=== PATIENT | female | born 1985 | race Caucasian/White ===

== ENCOUNTER 2016-04-19 13:20 | Emergency (ER) | payer OTHER ==
[~2016-04-19] VITALS: Ht 162.6 cm; Wt 70.3 kg
[~2016-04-19 13:20] MED LIST: [UNRECOGNIZED DRUG - OTHER] PO
[2016-04-19 13:29] VITALS: BP 138/100
--- NOTE | 2016-04-19 14:55 | NUR ---
PATIENT PRESENTS TO ED WITH VOMITING X1 DAY WITH GEN WEAKNESS; DENIES DIARRHEA; SKIN IS PINK/WARM/DRY; AAOX4 WITH EVEN AND STEADY GAIT; LUNGS CLEAR BL; HR EVEN AND REGULAR; PT DENIES ANY FEVER, CP, SOB, OR COUGH AT THIS TIME; PATIENT STATES PAIN OF 8/10 AT THIS TIME; VSS; PATIENT POSITIONED FOR COMFORT; HOB ELEVATED; BEDRAILS UP X2; BED DOWN. ER MD MADE AWARE OF PT STATUS.
--- NOTE | 2016-04-19 16:30 | NUR ---
AAO, COOPERATIVE PT BEING ASSESS BY DR NATARAJAN AT BEDSIDE
[2016-04-19] MEDS ORDERED: NACL 0.9% 1,000 ML IV ONE (16:40)
[2016-04-19] MEDS ORDERED: KETOROLAC 30 MG/ML VIAL IVP ONE (16:40)
[2016-04-19] MEDS ORDERED: ONDANSETRON 4 MG/2 ML VIAL IVP ONE (16:40)
--- NOTE | 2016-04-19 17:15 | NUR ---
AAO, COOPERATIVE PT STILL C/O BACK PAIN 10/19 DR NATARAJAN NOTIFIED, ORDERING MORPHINE
[2016-04-19] MEDS ORDERED: MORPHINE SULFATE 4 MG/ML SYR IVP ONE (17:25)
--- NOTE | 2016-04-19 17:56 | NUR ---
AAO, COOPERATIVE NO C/O PAIN 0/10 OR NAUSEA, DR NATARAJAN NOTIFIED, AWAITING DISCHARGE ORDERS
[2016-04-19 18:15] VITALS: BP 130/70
--- NOTE | 2016-04-19 18:15 | NUR ---
Patient discharged with v/s stable. Written and verbal after care instructions given and explained. Patient alert, oriented and verbalized understanding of instructions. Ambulatory with steady gait. All questions addressed prior to discharge. ID band removed. Patient advised to follow up with PMD. Rx of PREDNISONE, NORCO, CIPRO, ZOFRAN, MOTRIN given. Patient educated on indication of medication including possible reaction and side effects. Opportunity to ask questions provided and answered.
== END 2016-04-19 18:15 | disposition home or self-care (01) ==
LOC: MED 13:20
DX: N39.0 Urinary tract infection, site not specified (principal); J02.9 Acute pharyngitis, unspecified; R05 Cough; Z88.6 Allergy status to analgesic agent
CPT/HCPCS: 81001; 81025; 87086; 96361; 96374; 96375; 99284; J1885; J2270; J2405; J7030

== ENCOUNTER 2016-07-13 20:09 | Emergency (ER) | payer OTHER ==
[~2016-07-13] VITALS: Ht 162.6 cm; Wt 70.3 kg
[2016-07-13 20:12] VITALS: BP 163/97
[2016-07-13 21:00] LABS: BASOPHILS # (AUTO) 0.2 K/uL (0.00-0.22); EOSINOPHILS # (AUTO) 0.3 K/uL (0-0.4); HEMATOCRIT 39.9 % (36-48); HEMOGLOBIN 12.8 g/dL (12.0-16.0); LYMPHOCYTES # (AUTO) 2.4 K/uL (2.5-16.5); LYMPHOCYTES % (AUTO) 21.1 % (20.5-51.1); MEAN CORPUSCULAR HEMOGLOBIN 26 pg (27-31); MEAN CORPUSCULAR HGB CONC 32 g/dL (33-37); MEAN CORPUSCULAR VOLUME 82 fL (80-94); MONOCYTES # (AUTO) 0.5 K/uL (0.8-1.0); MONOCYTES % (AUTO) 4.2 % (1.7-9.3); NEUTROPHILS % (AUTO) 69.7 % (42.2-75.2); PLATELET COUNT (AUTO) 205 K/uL (140-450); RED BLOOD CELL COUNT(AUTO) 4.89 MIL/uL (4.20-5.40); RED CELL DISTRIBUTION WIDTH 13.7 % (11.6-13.7); WHITE BLOOD COUNT (AUTO) 11.4 K/uL (4.8-10.8)
[2016-07-13 21:10] LABS: ANION GAP 11.8 (8-16); CALCIUM 8.9 mg/dL (8.5-10.1); CARBON DIOXIDE 27.8 mmol/L (21-32); CREATININE 0.7 mg/dL (0.6-1.3); POTASSIUM 3.6 mmol/L (3.5-5.1)
[2016-07-13 21:16] LABS: TOTAL BILIRUBIN 0.5 mg/dL (0.0-1.0); TOTAL PROTEIN, SERUM 7.3 g/dL (6.4-8.2)
--- NOTE | 2016-07-13 21:40 | NUR ---
PATIENT LEFT WITHOUT BEING SEEN BY DR. GOLDMAN. NO FURTHER CARE PROVIDED FOR PATIENT.
== END 2016-07-13 21:40 | disposition left against medical advice (07) ==
LOC: MED 20:09
DX: R07.89 Other chest pain (principal); Z53.21 Procedure and treatment not carried out due to patient leaving prior to being seen by health care provider
CPT/HCPCS: 36415; 80053; 83690; 85025; 99281

== ENCOUNTER 2017-02-18 12:16 | Emergency (ER) | payer OTHER ==
[~2017-02-18] VITALS: Ht 162.6 cm; Wt 76.0 kg
[2017-02-18 12:48] VITALS: BP 141/89
--- NOTE | 2017-02-18 13:26 | NUR ---
PATIENT PRESENTS TO ED WITH LOWER BACK PAIN . PT STATES . DENIES N/V/D; SKIN IS PINK/WARM/DRY; AAOX4 WITH EVEN AND STEADY GAIT; LUNGS CLEAR BL; HR EVEN AND REGULAR; PT DENIES ANY FEVER, CP, SOB, OR COUGH AT THIS TIME; PATIENT STATES PAIN OF 10/10 AT THIS TIME; VSS; PATIENT POSITIONED FOR COMFORT; HOB ELEVATED; BEDRAILS UP X2; BED DOWN. ER MD MADE AWARE OF PT STATUS.
[2017-02-18] MEDS ORDERED: diphenhydrAMINE 50 MG/ML VIAL IM ONE (13:35)
[2017-02-18] MEDS ORDERED: HYDROmorphone PFS 2 MG/ML SYR IM ONE (13:35)
[2017-02-18] MEDS ORDERED: KETOROLAC 60 MG/2 ML VIAL IM ONE (13:35)
--- NOTE | 2017-02-18 13:59 | NUR ---
PRIOR TO BEING MEDICATED WRITTEN PT AMBULATED TO RESTROOM WITH SLOW STEADY GAIT.
--- NOTE | 2017-02-18 14:00 | NUR ---
WILL CONTINUE TO OBSERVE FOR PAIN CONTROL--- AT BEDSIDE
--- NOTE | 2017-02-18 14:00 | NUR ---
LAB COLLECTED TO URINE SAMPLE PROVIDED BY PT
[2017-02-18 14:08] LABS: APPEARANCE,URINE CLEAR (CLEAR); BILIRUBIN,URINE NEGATIVE (NEGATIVE); BLOOD, URINE TRACE-I (NEGATIVE); COLOR,URINE YELLOW (YELLOW); LEUKOCYTE ESTERASE ,URINE NEGATIVE (NEGATIVE); NITRITE, URINE NEGATIVE (NEGATIVE); UGLUCOSE NEGATIVE (NEGATIVE)
[2017-02-18 14:13] LABS: BARBITURATE, URINE NEG. ng/ml (NEG <=200); BENZODIAZEPINE, URINE NEG. ng/mL (NEG <=200); CANNABINOID, URINE NEG. ng/mL (NEG <=50); COCAINE, URINE NEG. ng/mL (NEG <=300); OPIATE, URINE NEG. ng/mL (NEG <=2000); PHENCYCLIDINE SCREEN,URINE NEG. ng/mL (NEG <=25)
[2017-02-18 14:24] LABS: RBC,URINE 0-5 (RARE) /HPF (0-5); WBC,URINE 0-5 (RARE) /HPF (0-5)
[2017-02-18 14:36] VITALS: BP 131/71
--- NOTE | 2017-02-18 14:37 | NUR ---
PT ADMITS PAIN HAS DECREASED TO BELOW TOLERABLE LEVEL INSTRUCTED TO F/U WITH PMD THIS WEEK Patient discharged with v/s stable. Written and verbal after care instructions given and explained. Patient alert, oriented and verbalized understanding of instructions. Ambulatory with steady gait. All questions addressed prior to discharge. ID band removed. Patient advised to follow up with PMD. Rx ofVISTARIL/VOLTAREN XR given. Patient educated on indication of medication including possible reaction and side effects. Opportunity to ask questions provided and answered.
== END 2017-02-18 14:37 | disposition home or self-care (01) ==
LOC: MED 12:16
DX: G89.29 Other chronic pain (principal); M54.5 Low back pain; Z79.899 Other long term (current) drug therapy
CPT/HCPCS: 80305; 81001; 81025; 96372; 99284; J1170; J1200; J1885

== ENCOUNTER 2017-06-05 00:05 | Emergency (ER) | payer OTHER ==
[~2017-06-05] VITALS: Ht 162.6 cm; Wt 76.7 kg
[2017-06-05 00:17] VITALS: BP 135/100
--- NOTE | 2017-06-05 00:50 | NUR ---
EKG AND LABS DONE
--- NOTE | 2017-06-05 00:54 | NUR ---
PT AMBULATED TO CHAIR C
--- NOTE | 2017-06-05 00:59 | NUR ---
PATIENT PRESENTS TO ED WITH C/O ABD PAIN THAT RADIATES TO THE BACK AND CHEST PAIN PT DENIES N/V/D; SKIN IS PINK/WARM/DRY; AAOX4 WITH EVEN AND STEADY GAIT; LUNGS CLEAR BL; HR EVEN AND REGULAR; PT DENIES ANY FEVER, CP, SOB, OR COUGH AT THIS TIME; PATIENT STATES PAIN OF 10/10 AT THIS TIME; VSS; PATIENT POSITIONED FOR COMFORT; HOB ELEVATED; BEDRAILS UP X2; BED DOWN. ER MD MADE AWARE OF PT STATUS.
[2017-06-05 01:07] LABS: HEMATOCRIT 41.1 % (36-48); HEMOGLOBIN 13.5 g/dL (12.0-16.0); MEAN CORPUSCULAR HEMOGLOBIN 28 pg (27-31); MEAN CORPUSCULAR HGB CONC 33 g/dL (33-37); MEAN CORPUSCULAR VOLUME 86.1 fL (80-94); PLATELET COUNT (AUTO) 183 K/uL (140-450); RED BLOOD CELL COUNT(AUTO) 4.77 MIL/uL (4.20-5.40); RED CELL DISTRIBUTION WIDTH 12.7 % (11.6-13.7); WHITE BLOOD COUNT (AUTO) 7.9 K/uL (4.8-10.8)
--- NOTE | 2017-06-05 01:18 | NUR ---
PT TAKEN TO BED 11
[2017-06-05] MEDS ORDERED: NACL 0.9% 1,000 ML IV ONE (01:40)
[2017-06-05] MEDS ORDERED: MORPHINE SULFATE 4 MG/ML SYR IVP ONE ×2 (01:40→03:50)
[2017-06-05] MEDS ORDERED: PANTOPRAZOLE 40 MG INJ VIAL IVP ONE (01:40)
[2017-06-05 01:50] LABS: APPEARANCE,URINE CLEAR (CLEAR); BILIRUBIN,URINE NEGATIVE (NEGATIVE); BLOOD, URINE 1+ (NEGATIVE); COLOR,URINE YELLOW (YELLOW); LEUKOCYTE ESTERASE ,URINE NEGATIVE (NEGATIVE); NITRITE, URINE NEGATIVE (NEGATIVE); UGLUCOSE NEGATIVE (NEGATIVE)
[2017-06-05 04:18] LABS: RBC,URINE 3-10 (FEW) /HPF (0-5); WBC,URINE 0-5 (RARE) /HPF (0-5)
[2017-06-05 06:27] LABS: ANION GAP 10.2 (8-16); CARBON DIOXIDE 26.7 mmol/L (21-32); CREATININE 0.7 mg/dL (0.6-1.3); POTASSIUM 3.9 mmol/L (3.5-5.1); TOTAL BILIRUBIN 0.7 mg/dL (0.0-1.0)
[2017-06-05 06:28] LABS: ALBUMIN 3.6 g/dL (3.4-5.0)
[2017-06-05] MEDS ORDERED: ALUMINUM HYD/MAG/SIMETHICONE 30 ML UDC PO ONE (06:40)
[2017-06-05] MEDS ORDERED: DICYCLOMINE HCL LIQUID 10 MG/5 ML UDC PO ONE (06:40)
[2017-06-05] MEDS ORDERED: LIDOCAINE VISCOUS 2% 20 ML UDC PO ONE (06:40)
--- NOTE | 2017-06-05 06:47 | NUR ---
IV removed, catheter intact and site benign. Applied folded 4x4 gauze and tape to stop bleeding.
[2017-06-05 07:04] VITALS: BP 162/97
--- NOTE | 2017-06-05 07:04 | NUR ---
Patient discharged with v/s stable. Written and verbal after care instructions given and explained. Patient alert, oriented and verbalized understanding of instructions. Ambulatory with steady gait. All questions addressed prior to discharge. ID band removed. Patient advised to follow up with PMD. Rx of ZANTAC 300MG AND NORCO 5/325MG given. Patient educated on indication of medication including possible reaction and side effects. Opportunity to ask questions provided and answered.
== END 2017-06-05 07:04 | disposition home or self-care (01) ==
LOC: MED 00:05
DX: K29.70 Gastritis, unspecified, without bleeding (principal); Z90.49 Acquired absence of other specified parts of digestive tract; Z88.6 Allergy status to analgesic agent
CPT/HCPCS: 36415; 80053; 81001; 82150; 83605; 83690; 84484; 84703; 85025; 85379; 87040; 93005; 96361; 96374; 96375; 96376; 99285; C9113; J2270; J7030

== ENCOUNTER 2017-11-18 21:35 | Emergency (ER) | payer OTHER ==
[~2017-11-18] VITALS: Ht 162.6 cm; Wt 77.8 kg
[2017-11-18 21:48] VITALS: BP 125/78
--- NOTE | 2017-11-18 21:52 | NUR ---
TO BED # 10 AMB REPORT GIVEN TO ZAIRA BYRD
--- NOTE | 2017-11-18 22:10 | NUR ---
32/F BIB FAMILY, C/O 12/19 PELVIC PAIN, RADIATING TO SIDES, X4 HRS. S/P VAGINAL HYSTERECTOMY 2 DAYS AGO. PT STATED THAT SHE HAS A SLING IN THE BLADDER, WENT HOME WITH PANTOJA CATHETER WITH CAP. PT NOTICED HEMATURIA AFTER URINATION, THINKS THE CATHETER IS PULLED. PT REPORTS URINE COMING OUT THROUGH URETHRA AND CATHETER WHEN URINATING. 4 LAPAROSCOPIC INCISIONS NOTED, DRESSING IN PLACE, DENIES PAIN ON INCISION SITES.
--- NOTE | 2017-11-18 23:51 | NUR ---
Dr. Lin evaluating patient at bedside.
[2017-11-19] MEDS ORDERED: NACL 0.9% 1,000 ML IV SCH (00:07)
[2017-11-19] MEDS ORDERED: ONDANSETRON 4 MG/2 ML VIAL IVP ONE (00:10)
[2017-11-19] MEDS ORDERED: MORPHINE SULFATE 10 MG/ML SYR IVP ONE (00:10)
--- NOTE | 2017-11-19 00:20 | NUR ---
PT RESTING IN BED, REPORTS 10/10 PAIN, VSS, ALL NEEDS MET.
[2017-11-19] MEDS ORDERED: MORPHINE SULFATE 4 MG/ML SYR ONE (00:24)
[2017-11-19] MEDS ORDERED: MORPHINE SULFATE 2 MG/ML SYR ONE (00:25)
--- NOTE | 2017-11-19 00:27 | NUR ---
PT TAKEN TO RADIOLOGY
[2017-11-19 01:19] LABS: BASOPHILS # (AUTO) 0.1 K/uL (0.00-0.22); BASOPHILS % (AUTO) 0.7 % (0.0-2.0); EOSINOPHILS # (AUTO) 0.5 K/uL (0-0.4); HEMATOCRIT 28.9 % (36-48); HEMOGLOBIN 9.4 g/dL (12.0-16.0); LYMPHOCYTES # (AUTO) 3.2 K/uL (2.5-16.5); LYMPHOCYTES % (AUTO) 32.8 % (20.5-51.1); MEAN CORPUSCULAR HEMOGLOBIN 25 pg (27-31); MEAN CORPUSCULAR HGB CONC 33 g/dL (33-37); MEAN CORPUSCULAR VOLUME 77.5 fL (80-94); MONOCYTES # (AUTO) 0.5 K/uL (0.8-1.0); NEUTROPHILS # (AUTO) 5.5 K/uL (1.8-7.7); NEUTROPHILS % (AUTO) 56.5 % (42.2-75.2); PLATELET COUNT (AUTO) 225 K/uL (140-450); RED BLOOD CELL COUNT(AUTO) 3.73 MIL/uL (4.20-5.40); RED CELL DISTRIBUTION WIDTH 18.1 % (11.6-13.7); WHITE BLOOD COUNT (AUTO) 9.7 K/uL (4.8-10.8)
[2017-11-19 01:26] LABS: APPEARANCE,URINE SL CLOUDY (CLEAR); BILIRUBIN,URINE NEGATIVE (NEGATIVE); BLOOD, URINE 3+ (NEGATIVE); COLOR,URINE YELLOW (YELLOW); LEUKOCYTE ESTERASE ,URINE NEGATIVE (NEGATIVE); NITRITE, URINE NEGATIVE (NEGATIVE); UGLUCOSE NEGATIVE (NEGATIVE)
[2017-11-19 01:26] LABS: ANION GAP 8.2 (8-16); CARBON DIOXIDE 29.6 mmol/L (21-32); CREATININE 0.4 mg/dL (0.6-1.3); POTASSIUM 3.8 mmol/L (3.5-5.1)
[2017-11-19 01:32] LABS: ALBUMIN 3.4 g/dL (3.4-5.0); TOTAL BILIRUBIN 0.3 mg/dL (0.0-1.0)
[2017-11-19 01:50] LABS: RBC,URINE 11-20 (MOD) /HPF (0-5); WBC,URINE 0-5 (RARE) /HPF (0-5)
--- NOTE | 2017-11-19 02:10 | NUR ---
ER AT BEDSIDE
[2017-11-19] MEDS ORDERED: fentaNYL 0.05 MG/ML VIAL IVP ONE (03:20)
--- NOTE | 2017-11-19 04:05 | NUR ---
Patient discharged with v/s stable. Written and verbal after care instructions given and explained. Patient alert, oriented and verbalized understanding of instructions. Wheel Chair Assisted with to car. All questions addressed prior to discharge. ID band removed. Patient advised to follow up with PMD. Rx of NORCO REGLAN given. Patient educated on indication of medication including possible reaction and side effects. Opportunity to ask questions provided and answered.
[2017-11-19 04:06] VITALS: BP 111/72
== END 2017-11-19 04:05 | disposition home or self-care (01) ==
LOC: MED 21:35
DX: G89.18 Other acute postprocedural pain (principal); Z88.6 Allergy status to analgesic agent; Z90.710 Acquired absence of both cervix and uterus
CPT/HCPCS: 36415; 71045; 74176; 80053; 81001; 81025; 83690; 85025; 87040; 87086; 93005; 96361; 96374; 96375; 99285; J2270; J2405; J3010; J7030

== ENCOUNTER 2018-05-07 13:26 | Emergency (ER) | payer OTHER ==
[~2018-05-07] VITALS: Ht 162.6 cm; Wt 68.0 kg
[2018-05-07 13:30] VITALS: BP 153/95
--- NOTE | 2018-05-07 13:35 | NUR ---
PT TRIAGED, GIVEN URINE CUP AND SENT TO ER LOBBY. VSS.
--- NOTE | 2018-05-07 13:53 | NUR ---
PT TO ER BED 12
--- NOTE | 2018-05-07 14:02 | NUR ---
PATIENT PRESENTS TO ED WITH C/O FRONTAL LOBE PRESSURE/ SINUS RADIATING TO OCCIPITAL REGION X LAST NIGHT PT ADDS SHE HAS TAKEN TYLENOL AND IBUPROFEN WITH NO RELIEF. DENIES CURRENTLY WITH COLD SYMPTOMS. FULL CLEAR SPEECH, NO FACIAL ASYMMETRY, MOVING EXTREMITIES EQUALLY, NO DRIFT NOTED. DENIES N/V/D; SKIN IS PINK/WARM/DRY; AAOX4 WITH EVEN AND STEADY GAIT; LUNGS CLEAR BL; HR EVEN AND REGULAR; PT DENIES ANY FEVER, CP, SOB, OR COUGH AT THIS TIME; PATIENT STATES PAIN OF 10/10 AT THIS TIME; VSS; PATIENT POSITIONED FOR COMFORT; HOB ELEVATED; BEDRAILS UP X2; BED DOWN. ER MD MADE AWARE OF PT STATUS.
[2018-05-07] MEDS ORDERED: KETOROLAC 60 MG/2 ML VIAL IM ONE (14:25)
[2018-05-07] MEDS ORDERED: PROCHLORPERAZINE 10 MG/2 ML VIAL IM ONE (14:25)
--- NOTE | 2018-05-07 15:19 | NUR ---
MEDICATED WRITTEN, LIGHTS TURNED OFF FOR COMFORT----WILL CONTINUE TO OBSERVE FOR PAIN CONTROL---
--- NOTE | 2018-05-07 16:21 | NUR ---
CONTINUES TO C/O POUNDING HEADACHE---MD NOTIFIED
[2018-05-07] MEDS ORDERED: LIDOCAINE 1% 500 MG/50 ML VIAL INJ SCH (16:30)
--- NOTE | 2018-05-07 16:45 | NUR ---
LIDOCAINE AND OTHER SUPPLIES AT BEDSIDE FOR MD --DIRECT BLOCK
[2018-05-07] MEDS ORDERED: LIDOCAINE MPF 1% 5mL VIAL ONE (16:52)
--- NOTE | 2018-05-07 17:55 | NUR ---
Patient discharged with v/s stable. Written and verbal after care instructions given and explained. Patient verbalized understanding. Ambulatory with steady gait. All questions addressed prior to discharge. Advised to follow up with PMD.
[2018-05-07 17:56] VITALS: BP 127/71
== END 2018-05-07 17:55 | disposition home or self-care (01) ==
LOC: MED 13:26
DX: G44.209 Tension-type headache, unspecified, not intractable (principal); R03.0 Elevated blood-pressure reading, without diagnosis of hypertension; R11.2 Nausea with vomiting, unspecified; Z88.5 Allergy status to narcotic agent; Z90.710 Acquired absence of both cervix and uterus
CPT/HCPCS: 20552; 96372; 99283; J0780; J1885; J2001

== ENCOUNTER 2018-05-25 15:24 | Emergency (ER) | payer OTHER ==
[~2018-05-25] VITALS: Ht 162.6 cm; Wt 70.3 kg
[2018-05-25 15:45] VITALS: BP 153/96
--- NOTE | 2018-05-25 16:10 | NUR ---
BIB SELF WITH C/O LOWER BACK PAIN 9/10, SHARP AND ACHEY & CONSTIPATION X3 DAYS. STATES SHE HAS A HEMMORHOID THAT SHE HAS BEEN USING OTC CREAM FOR. PT ALSO STATES SHE HAS BEEN FEELING A BURNING FEELING UPON URINATION WELL R SIDED LOWER ABDOMEN TENDERNESS.
[2018-05-25] MEDS ORDERED: KETOROLAC 60 MG/2 ML VIAL IM ONE (16:15)
--- NOTE | 2018-05-25 16:38 | NUR ---
bedside x-ray completed
[2018-05-25 17:02] VITALS: BP 140/86
--- NOTE | 2018-05-25 17:03 | NUR ---
Patient discharged with v/s stable. Written and verbal after care instructions given and explained. Patient alert, oriented and verbalized understanding of instructions. Ambulatory with steady gait. All questions addressed prior to discharge. ID band removed. Patient advised to follow up with PMD. Rx of LACTULOSE, MINERAL OIL, MORTIN, ANUCORT SUPPOSETORY given. Patient educated on indication of medication including possible reaction and side effects. Opportunity to ask questions provided and answered. Addendum: 05/25/18 at 1705 by [email or web address] Patient discharged with v/s stable. Written and verbal after care instructions given and explained. Patient alert, oriented and verbalized understanding of instructions. Ambulatory with steady gait. All questions addressed prior to discharge. ID band removed. Patient advised to follow up with PMD. Rx of LACTULOSE, MINERAL OIL, MORTIN, ANUCORT SUPPOSITORY given. TRAMADOL INITIALLY PRESCRIBED, DUE TO ALLERGY, IT WAS REMOVED FROM PRESCRIPTION. Patient educated on indication of medication including possible reaction and side effects. Opportunity to ask questions provided and answered.
== END 2018-05-25 17:03 | disposition home or self-care (01) ==
LOC: MED 15:24
DX: K64.4 Residual hemorrhoidal skin tags (principal); K59.00 Constipation, unspecified; Z88.5 Allergy status to narcotic agent
CPT/HCPCS: 74018; 81002; 81025; 96372; 99283; J1885

== ENCOUNTER 2019-01-07 22:06 | Emergency (ER) | payer OTHER ==
[~2019-01-07] VITALS: Ht 162.6 cm; Wt 74.8 kg
[2019-01-07 22:20] VITALS: BP 153/95
[2019-01-07] MEDS ORDERED: LISINOPRIL 20 MG TAB PO ONE (23:25)
[2019-01-07] MEDS ORDERED: ACETAMINOPHEN EXTRA STRENGTH 500 MG TAB PO ONE (23:25)
[2019-01-07] MEDS ORDERED: LISINOPRIL 10 MG TAB ONE (23:34)
[2019-01-08] MEDS ORDERED: ONDANSETRON 4 MG ODT PO ONE (00:40)
[2019-01-08] MEDS ORDERED: MORPHINE SULFATE 4 MG/ML SYR IM ONE (00:40)
[2019-01-08 01:39] VITALS: BP 127/93
== END 2019-01-08 00:39 | disposition home or self-care (01) ==
LOC: MED 22:06
DX: I10 Essential (primary) hypertension (principal); R42 Dizziness and giddiness; R11.2 Nausea with vomiting, unspecified; Z90.49 Acquired absence of other specified parts of digestive tract; Z90.710 Acquired absence of both cervix and uterus; Z88.6 Allergy status to analgesic agent
CPT/HCPCS: 81025; 96372; 99283; J2270; Q0162; 93005

== ENCOUNTER 2019-02-14 18:04 | Emergency (ER) | payer OTHER | END 2019-02-14 19:58 | disposition left against medical advice (07) | LOC: MED 18:04 | DX: R51 Headache (principal); Z53.21 Procedure and treatment not carried out due to patient leaving prior to being seen by health care provider ==

== ENCOUNTER 2019-03-26 09:50 | Emergency (ER) | payer OTHER ==
[~2019-03-26] VITALS: Ht 152.4 cm; Wt 74.8 kg
[2019-03-26 09:58] VITALS: BP 140/95
[2019-03-26] MEDS: KETOROLAC 30 MG/ML VIAL IM ONE (11:13)
[2019-03-26] MEDS: PROCHLORPERAZINE 10 MG/2 ML VIAL IM ONE (11:14)
[2019-03-26 11:30] VITALS: BP 133/89
== END 2019-03-26 11:30 | disposition home or self-care (01) ==
LOC: MED 09:50
DX: R51 Headache (principal); M54.5 Low back pain; R11.10 Vomiting, unspecified; Z90.710 Acquired absence of both cervix and uterus; Z88.5 Allergy status to narcotic agent
CPT/HCPCS: 81002; 81025; 96372; 99283; J0780; J1885

== ENCOUNTER 2021-06-10 08:06 | Emergency (ER) | payer OTHER ==
[~2021-06-10] VITALS: Ht 160 cm; Wt 75.7 kg
[2021-06-10 08:13] VITALS: BP 148/97
--- NOTE | 2021-06-10 08:20 | NUR ---
PATIENT AMBULATED TO BED 3, STEADY GAIT
[2021-06-10] MEDS ORDERED: diphenhydrAMINE 50 MG/ML VIAL IVP ONE (08:40)
[2021-06-10] MEDS ORDERED: METOCLOPRAMIDE 10 MG/2 ML INJ VIAL IVP ONE ×2 (08:40→09:05)
[2021-06-10] MEDS ORDERED: NACL 0.9% 1,000 ML IV ONE (08:40)
--- NOTE | 2021-06-10 08:45 | NUR ---
DOCTOR NATARAJAN AT BEDSIDE
[2021-06-10] MEDS ORDERED: IBUP-2213 PO ×2 (08:54→08:56)
[2021-06-10] MEDS ORDERED: ONDA8TAB87 PO ×2 (08:54→08:56)
[2021-06-10] MEDS ORDERED: ACET-8386 PO ×2 (08:54→08:56)
--- NOTE | 2021-06-10 10:05 | NUR ---
Patient discharged with v/s stable. Written and verbal after care instructions given and explained. Patient alert, oriented and verbalized understanding of instructions. Ambulatory with steady gait. All questions addressed prior to discharge. ID band removed. IV DISCONTINUED AND REMOVED, GAUZE DRESSING APPLIED. Patient advised to follow up with PMD. Rx of IBUPROFEN, ZOFRAN, HYDROCODONE/ACETAMINOOPHEN given. Patient educated on indication of medication including possible reaction and side effects. Opportunity to ask questions provided and answered.
[2021-06-10 10:07] VITALS: BP 148/97
== END 2021-06-10 10:05 | disposition home or self-care (01) ==
LOC: MED 08:06
DX: R51.9 Headache, unspecified (principal); R11.2 Nausea with vomiting, unspecified; Z88.5 Allergy status to narcotic agent; Z90.710 Acquired absence of both cervix and uterus
CPT/HCPCS: 81002; 96361; 96374; 96375; 99284; J1200; J2765; J7030; 81025

== ENCOUNTER 2021-11-05 03:06 | Emergency (ER) | payer OTHER ==
[~2021-11-05 03:06] MED LIST changes: +ACET-8386 PO; +IBUP-2213 PO; +ONDA8TAB87 PO; -[UNRECOGNIZED DRUG - OTHER] PO
--- NOTE | 2021-11-05 03:23 | NUR ---
PATIENT LEFT WITHOUT BEING SEEN BY DR. LÓPEZ. NO FURTHER CARE PROVIDED FOR PATIENT.
== END 2021-11-05 03:23 | disposition left against medical advice (07) ==
LOC: MED 03:06
DX: R10.9 Unspecified abdominal pain (principal); Z53.21 Procedure and treatment not carried out due to patient leaving prior to being seen by health care provider

== ENCOUNTER 2021-12-14 18:03 | Emergency (ER) | payer OTHER ==
[~2021-12-14] VITALS: Ht 162.6 cm; Wt 75.7 kg
[2021-12-14 18:18] VITALS: BP 171/110
--- NOTE | 2021-12-14 18:40 | NUR ---
36 y/o female bib self, c/o cough, body aches, subjective fever, vomiting and diarrhea for 2 days. skin is pink/warm/dry. a&o x4 with even and steady gait. pt denies dysuria, hematuria, urinary frequency or retention, or anyone sick in the household with the same symptoms. pt states pain is 8/10 at this time. patient positioned for comfort. hob elevated. bed down. ermd made aware of pt. pmh: denies allergy: tramadol med: nyquil
[2021-12-14] MEDS ORDERED: IPRATROPIUM 0.02% 0.5 MG/2.5 ML NEBU INH ONE (18:55)
[2021-12-14] MEDS ORDERED: DEXAMETHASONE 10 MG/ML VIAL IM ONE (18:55)
[2021-12-14] MEDS ORDERED: ALBUTEROL 0.083% 2.5 MG/3 ML NEBU INH ONE ×2 (18:55→20:05)
--- NOTE | 2021-12-14 19:23 | NUR ---
RT AT BEDSIDE.
--- NOTE | 2021-12-14 20:00 | NUR ---
SWAB COLLECTED AND TAKEN TO LAB.
--- NOTE | 2021-12-14 20:00 | NUR ---
Dr. Costello examining patient.
--- NOTE | 2021-12-14 20:13 | NUR ---
RT AT BEDSIDE.
[2021-12-14] MEDS ORDERED: NACL 0.9% 1,000 ML IV ONE (20:25)
[2021-12-14] MEDS ORDERED: MAG SULF 2000 MG/WATER PREMIX 50 ML IV ONE (20:25)
--- NOTE | 2021-12-14 20:28 | NUR ---
LAB AT BEDSIDE.
[2021-12-14 20:38] LABS: BASOPHILS % (AUTO) 0.4 % (0.0-2.0); EOSINOPHILS # (AUTO) 0.1 K/uL (0-0.4); EOSINOPHILS % (AUTO) 2.4 % (0.0-4.0); HEMATOCRIT 41.3 % (36-48); HEMOGLOBIN 14.1 g/dL (12.0-16.0); LYMPHOCYTES # (AUTO) 1.2 K/uL (2.5-16.5); LYMPHOCYTES % (AUTO) 23.9 % (20.5-51.1); MEAN CORPUSCULAR HEMOGLOBIN 30 pg (27-31); MEAN CORPUSCULAR HGB CONC 34 g/dL (33-37); MEAN CORPUSCULAR VOLUME 86.2 fL (80-94); MONOCYTES # (AUTO) 0.2 K/uL (0.8-1.0); MONOCYTES % (AUTO) 3.4 % (1.7-9.3); NEUTROPHILS # (AUTO) 3.5 K/uL (1.8-7.7); NEUTROPHILS % (AUTO) 69.9 % (42.2-75.2); PLATELET COUNT (AUTO) 173 K/uL (140-450); RED BLOOD CELL COUNT(AUTO) 4.79 MIL/uL (4.20-5.40); RED CELL DISTRIBUTION WIDTH 13.7 % (11.6-13.7)
[2021-12-14 21:04] LABS: ALBUMIN 3.4 g/dL (3.4-5.0); ANION GAP 15.9 (8-16); CARBON DIOXIDE 22.9 mmol/L (21-32); CREATININE 0.6 mg/dL (0.6-1.3); TOTAL BILIRUBIN 0.3 mg/dL (0.0-1.0)
[2021-12-14 21:17] LABS: POTASSIUM 2.8 mmol/L (3.5-5.1)
--- NOTE | 2021-12-14 21:20 | NUR ---
PATIETN AMBULATED TO RR
--- NOTE | 2021-12-14 21:31 | NUR ---
RAD AT BEDSIDE.
[2021-12-14] MEDS ORDERED: DOXY-690 PO (21:54)
[2021-12-14] MEDS ORDERED: ALBU0.0912 INH (21:54)
[2021-12-14] MEDS ORDERED: POTASSIUM CHLORIDE 10 MEQ TABER PO ONE ×2 (21:55)
[2021-12-14 22:28] VITALS: BP 154/89
--- NOTE | 2021-12-14 22:28 | NUR ---
Patient discharged with v/s stable. Written and verbal after care instructions given and explained. Patient alert, oriented and verbalized understanding of instructions. Ambulatory with steady gait. All questions addressed prior to discharge. ID band removed. Patient advised to follow up with PMD. Rx of albuterol and vibramycin given.
== END 2021-12-14 22:28 | disposition home or self-care (01) ==
LOC: MED 18:05
DX: J45.909 Unspecified asthma, uncomplicated (principal); E87.6 Hypokalemia; Z20.822 Contact with and (suspected) exposure to COVID-19
CPT/HCPCS: 36415; 71045; 80053; 85025; 87635; 94640; 96365; 96372; 99291; C9803; J1100; J3475; J7030; J7613; Q0092

== ENCOUNTER 2023-06-04 17:49 | Emergency (ER) | payer OTHER ==
[~2023-06-04] VITALS: Ht 162.6 cm; Wt 80.3 kg
[~2023-06-04 17:49] MED LIST changes: -ACET-8386 PO; +ACET-8905 PO; +ALBU0.0912 INH; +DOXY-690 PO
[2023-06-04 18:02] VITALS: BP 162/118; PULSE 82; RESP 20; TEMP 98.7; O2SAT 97
[2023-06-04 19:26] LABS: BASOPHILS % (AUTO) 0.4 % (0.0-2.0); EOSINOPHILS # (AUTO) 0.3 K/uL (0-0.4); EOSINOPHILS % (AUTO) 3.2 % (0.0-4.0); HEMATOCRIT 38.4 % (36-48); HEMOGLOBIN 13.3 g/dL (12.0-16.0); LYMPHOCYTES # (AUTO) 2.5 K/uL (2.5-16.5); MEAN CORPUSCULAR HEMOGLOBIN 30 pg (27-31); MEAN CORPUSCULAR HGB CONC 35 g/dL (33-37); MEAN CORPUSCULAR VOLUME 86.1 fL (80-94); MONOCYTES # (AUTO) 0.5 K/uL (0.8-1.0); MONOCYTES % (AUTO) 5.9 % (1.7-9.3); NEUTROPHILS # (AUTO) 5.1 K/uL (1.8-7.7); NEUTROPHILS % (AUTO) 60.5 % (42.2-75.2); PLATELET COUNT (AUTO) 225 K/uL (140-450); RED BLOOD CELL COUNT(AUTO) 4.46 MIL/uL (4.20-5.40); RED CELL DISTRIBUTION WIDTH 13.6 % (11.6-13.7); WHITE BLOOD COUNT (AUTO) 8.4 K/uL (4.8-10.8)
[2023-06-04] MEDS: NACL 0.9% 1,000 ML IV ONE (19:26)
[2023-06-04] MEDS: KETOROLAC 30 MG/ML VIAL IVP ONE (19:29)
[2023-06-04] MEDS: diphenhydrAMINE 50 MG/ML VIAL IVP ONE (19:30)
[2023-06-04] MEDS: DEXAMETHASONE 10 MG/ML VIAL IVP ONE (19:34)
[2023-06-04] MEDS: PROCHLORPERAZINE 10 MG/2 ML VIAL IVP ONE (19:34)
[2023-06-04 19:40] LABS: ANION GAP 10.7 (8-16); CARBON DIOXIDE 27.6 mmol/L (21-32); CREATININE 0.5 mg/dL (0.6-1.3); POTASSIUM 3.3 mmol/L (3.5-5.1)
[2023-06-04] MEDS ORDERED: NAPR-54 PO (20:47)
[2023-06-04] MEDS ORDERED: METO-486 PO (20:47)
[2023-06-04 21:02] VITALS: BP 134/83; PULSE 69; RESP 15; TEMP 98.6; O2SAT 97
== END 2023-06-04 21:02 | disposition home or self-care (01) ==
LOC: MED 17:49
DX: G43.909 Migraine, unspecified, not intractable, without status migrainosus (principal); I10 Essential (primary) hypertension; R10.9 Unspecified abdominal pain; Z90.710 Acquired absence of both cervix and uterus; Z88.8 Allergy status to other drugs, medicaments and biological substances; Z79.1 Long term (current) use of non-steroidal anti-inflammatories (NSAID); Z79.899 Other long term (current) drug therapy
CPT/HCPCS: 36415; 80048; 81002; 81025; 84484; 85025; 93005; 96361; 96374; 96375; 99284; J0780; J1100; J1200; J1885; J7030

== ENCOUNTER 2023-10-21 22:39 | Emergency (ER) | payer OTHER ==
[~2023-10-21] VITALS: Ht 160 cm; Wt 78.9 kg
[~2023-10-21 22:39] MED LIST changes: +METO-486 PO; +NAPR-337 PO
[2023-10-21 22:44] VITALS: BP 146/92; PULSE 75; RESP 18; TEMP 98.2; O2SAT 98
[2023-10-21 23:24] LABS: APPEARANCE,URINE CLEAR (CLEAR); BILIRUBIN,URINE NEGATIVE (NEGATIVE); BLOOD, URINE TRACE-I (NEGATIVE); COLOR,URINE YELLOW (YELLOW); LEUKOCYTE ESTERASE ,URINE NEGATIVE (NEGATIVE); NITRITE, URINE NEGATIVE (NEGATIVE); PH,URINE 6.5 (5.0-9.0); PROTEIN,URINE NEGATIVE (NEGATIVE); UGLUCOSE NEGATIVE (NEGATIVE); UROBILINOGEN,URINE 0.2 EU/dL (0.2 - 1)
[2023-10-21 23:25] LABS: BASOPHILS # (AUTO) 0.1 K/uL (0.00-0.22); BASOPHILS % (AUTO) 0.6 % (0.0-2.0); EOSINOPHILS # (AUTO) 1.1 K/uL (0-0.4); EOSINOPHILS % (AUTO) 9.5 % (0.0-4.0); HEMATOCRIT 37.5 % (36-48); HEMOGLOBIN 12.4 g/dL (12.0-16.0); LYMPHOCYTES % (AUTO) 26.2 % (20.5-51.1); MEAN CORPUSCULAR HEMOGLOBIN 28 pg (27-31); MEAN CORPUSCULAR HGB CONC 33 g/dL (33-37); MEAN CORPUSCULAR VOLUME 85.5 fL (80-94); MONOCYTES # (AUTO) 0.5 K/uL (0.8-1.0); MONOCYTES % (AUTO) 4.8 % (1.7-9.3); NEUTROPHILS # (AUTO) 6.7 K/uL (1.8-7.7); NEUTROPHILS % (AUTO) 58.9 % (42.2-75.2); PLATELET COUNT (AUTO) 289 K/uL (140-450); RED BLOOD CELL COUNT(AUTO) 4.38 MIL/uL (4.20-5.40); RED CELL DISTRIBUTION WIDTH 13.7 % (11.6-13.7); WHITE BLOOD COUNT (AUTO) 11.3 K/uL (4.8-10.8)
[2023-10-21 23:32] LABS: BACTERIA,URINE 10-30 (MOD) /HPF (None Seen); MUCUS,URINE 1+ /LPF (None Seen); SQUAMOUS EPITHELIAL CELL,UR 4-10 (MOD) /LPF (0-3 (FEW)); WBC,URINE 0-5 /HPF (0-5)
[2023-10-21 23:38] LABS: ANION GAP 13.4 (8-16); CALCIUM 8.8 mg/dL (8.5-10.1); CARBON DIOXIDE 24.3 mmol/L (21-32); CREATININE 0.8 mg/dL (0.6-1.3); POTASSIUM 3.7 mmol/L (3.5-5.1)
[2023-10-21 23:40] LABS: ALBUMIN 3.4 g/dL (3.4-5.0); BILIRUBIN,DIRECT 0.1 mg/dL (0.0-0.3); TOTAL BILIRUBIN 0.4 mg/dL (0.0-1.0); TOTAL PROTEIN, SERUM 6.8 g/dL (6.4-8.2)
[2023-10-21] MEDS: ONDANSETRON 4 MG/2 ML VIAL IVP ONE (23:45)
[2023-10-21 23:48] VITALS: BP 138/74; PULSE 75; RESP 20; TEMP 98.2; O2SAT 98
[2023-10-21] MEDS: MORPHINE SULFATE 4 MG/ML SYR IVP ONE (23:50)
[2023-10-21] MEDS: NACL 0.9% 1,000 ML IV SCH (23:53)
[2023-10-22] MEDS ORDERED: ACET-8905 PO (00:21)
== END 2023-10-22 00:31 | disposition home or self-care (01) ==
LOC: MED 22:39
DX: R10.32 Left lower quadrant pain (principal); R11.0 Nausea; I10 Essential (primary) hypertension; Z98.890 Other specified postprocedural states; Z79.899 Other long term (current) drug therapy; Z88.5 Allergy status to narcotic agent
CPT/HCPCS: 36415; 74177; 80048; 80076; 81001; 81025; 83690; 85025; 87086; 96361; 96374; 96375; 99285; J2270; J2405; J7030; Q9967